=== PATIENT | male | born 1980 | race Hispanic/Latino ===

== ENCOUNTER 2020-08-06 09:27 | Inpatient (IN) | payer SELFPAY ==
[2020-08-06] MEDS ORDERED: Ondansetron PF 4 MG/2 ML Vial ONE ×2 (09:33→17:26)
[2020-08-06] MEDS ORDERED: Dexamethasone 20 MG/5 ML VIAL ONE (09:33)
[2020-08-06] MEDS ORDERED: Lidocaine 1% PF 5 ML VIAL ONE (09:33)
[2020-08-06] MEDS ORDERED: Rocuronium Bromide 10 MG/ML (10ML VIAL) ONE (09:33)
[2020-08-06] MEDS ORDERED: PROPOFOL 200 MG/20 ML VIAL ONE (09:33)
[2020-08-06] MEDS ORDERED: Haloperidol Lactate 5 MG/ML VIAL ONE (09:34)
[2020-08-06] MEDS ORDERED: Lorazepam 2 MG/ML VIAL ONE (09:37)
[2020-08-06] MEDS ORDERED: Ketamine 50 MG/ML (10ML VIAL) ONE (09:41)
[2020-08-06 10:14] LABS: #Lymphocytes 1.7 thou/uL (1.20-3.40); #Monocytes 0.4 thou/uL (0.11-0.59); #Neutrophils 5.6 thou/uL (1.40-6.50); %Basophils 0.6 % (0.0-1.0); %Eosinophils 0.1 % (0.0-10.0); %Lymphocytes 21.6 % (21.0-51.0); %Monocytes 5.1 % (0.0-10.0); %Neutrophils 72.6 % (42.0-75.0); Hemoglobin 15.6 g/dL (14.0-18.0); Mean Corpuscular HGB CONC 33.4 g/dL (32.0-36.0); Mean Corpuscular Hemoglobin 30.7 pg (27.0-31.0); Mean Platelet Volume 7.1 fL (7.4-10.4); Platelet Count 207 thou/uL (130-400); Red Blood Cell (RBC) Count 5.08 mill/uL (4.70-6.10); White Blood Cell (WBC) Count 7.7 thou/uL (4.8-10.8)
[2020-08-06] MEDS ORDERED: Boostrix 0.5 ML (Tdap) VIAL ONE (10:15)
[2020-08-06 10:19] LABS: PTT 25.2 sec (22.9-36.1)
[2020-08-06 10:33] LABS: ALT (SGPT) 43 U/L (8-55); AST (SGOT) 27 U/L (5-34); Acetaminophen Less than 6.0 mcg/mL (10.0-30.0); Albumin 4.5 g/dL (3.5-5.0); Alcohol Less than 10 mg/dL (Less than 10); Alkaline Phosphatase 67 U/L (40-110); Anion Gap 19 mmol/L (10-20); BUN (Urea Nitrogen) 15 mg/dL (8.9-20.6); Bilirubin, Total 0.7 mg/dL (0.2-1.2); CK (CPK) 460 U/L (30-200); Calc. Creatinine Clearance 0 mL/min (70-130); Calcium 8.8 mg/dL (7.8-10.44); Carbon Dioxide 22 mmol/L (22-29); Chloride 107 mmol/L (98-107); Globulin 2.8 g/dL (2.4-3.5); Glucose 170 mg/dL (70-105); Potassium 3.5 mmol/L (3.5-5.1); Protein, Total 7.3 g/dL (6.0-8.3); Salicylate Less than 8.0 mg/dL (15.0-30.0); Sodium 144 mmol/L (136-145)
--- NOTE | 2020-08-06 11:01 | RAD ---
EXAM: XR Wrist 3 Lt View STANDARD PROVIDED CLINICAL HISTORY: Pain FINDINGS: There is no evidence for fracture or other acute osseous abnormality. Alignment appears anatomic. Vandana nt spaces appear preserved. No evidence for radiopaque foreign body. Linear radiolucency involves the soft tissues at the volar aspect of the distal forearm. IMPRESSION: No evidence for an acute osseous abnormality. If there is persistent clinical concern, conservative m anagement and follow-up imaging advised.
--- NOTE | 2020-08-06 11:01 | RAD ---
EXAM: XR Wrist 3 Rt View STANDARD PROVIDED CLINICAL HISTORY: Pain FINDINGS: There is no evidence for fracture or other acute osseous abnormality. Alignment appears anatomic. Vandana nt spaces appear preserved. Soft tissue irregularity is noted at the volar aspect of the distal radius and ulna. No evidence for radiopaque foreign body. IMPRESSION: No evidence for an acute osseous abnormality. If there is persistent clinical concern, conservative m anagement and follow-up imaging advised.
[2020-08-06] MEDS ORDERED: Fentanyl 100 MCG/2 ML VIAL ONE ×3 (11:06→22:45)
[2020-08-06] MEDS ORDERED: Ondansetron PF 4 MG/2 ML Vial IVP PRN (11:27)
[2020-08-06] MEDS ORDERED: Dextrose 50% Abboject 50 ML SYRINGE SLOW IVP PRN (11:27)
[2020-08-06] MEDS ORDERED: Dextrose 5% in Water 1,000 ML IV PRN (11:27)
[2020-08-06] MEDS ORDERED: traMADol HCl 50 MG TAB PO PRN (11:29)
--- NOTE | 2020-08-06 12:48 | HP ---
TRAUMA SURGEON: Fabián Hutchison MD. CONSULTING PHYSICIAN: Dr. Mcclellan. HISTORY OF PRESENT ILLNESS: The patient is a 40-year-old male, presented to the emergency department via EMS after bilateral self-inflicted wrist lacerations. Emergency room physician reported that the patient called his father and was acting unusually, so subsequently emergency services went to check on him and he had bilateral wrist lacerations. On evaluation, right wrist was concerning for possible vascular injury. Compression dressing was placed and Trauma was notified. Dr. Mcclellan plans to take the patient to the OR. At the time of my evaluation, the patient is resting comfortably in the bed. He was reportedly uncooperative earlier, but during my evaluation, he refused to speak to me or open his eyes, I was not able to perform an examination, but his right upper extremity was splinted. He did not cooperate with any of my instructions, but was not combative or destructive. REVIEW OF SYSTEMS: Unable to complete due to patient's mentation. PAST MEDICAL HISTORY: Depression. Additional past medical history, unknown. PAST SURGICAL HISTORY: Unknown. SOCIAL HISTORY: Unknown. MEDICATIONS: Unknown. ALLERGIES: UNKNOWN. PHYSICAL EXAMINATION: VITAL SIGNS: Temperature 98.2, pulse 78, respirations 16, oxygen saturation 97% on room air, blood pressure 121/79. PRIMARY SURVEY: Airway intact. Adequate breath sounds bilaterally. 2+ pulses in bilateral radials, femorals, and DPs. GCS 15. Gross motor and sensation intact. The patient has very superficial lacerations to the left wrist, right laceration was unable to be examined as the splint was in place, but the tips of the fingers were well perfused. SECONDARY SURVEY: HEAD: No signs of trauma. No signs of deformity. EYES: Pupils 3 to 2. ENT: No signs of trauma. C-SPINE: No step-offs or deformities, nontender C-collar not in place. CHEST: Nontender. No crepitus, no abrasions or ecchymosis noted. Equal chest movement. ABDOMEN: Soft, nontender, nondistended. PELVIS: Stable. RECTAL: Deferred. GENITOURINARY: Deferred. EXTREMITIES: No gross deformity to the bilateral lower extremities. He has multiple superficial lacerations to the left wrist. It is reported that he has a right wrist laceration, but the splint is in place, the tips of his fingers of the right hand are well perfused. BACK/SPINE: No step-offs or deformities or tenderness to thoracic or lumbar spine. NEURO: Unable to complete due to patient's unwillingness to cooperate in exam. LABORATORY FINDINGS: White count 7.7, hemoglobin 15.6, hematocrit 46.7, platelets 207. INR 1.0. Sodium 144, potassium 3.5, chloride 107, bicarb 22, BUN 15, creatinine 1.28, glucose 170, total bilirubin 0.7, AST 27, ALT 43, alkaline phosphatase 64. CK 460, plasma alcohol is less than 10. X-RAY: Of the left wrist demonstrates no evidence of acute osseous abnormalities. If there is persistent clinical concern, conservative management and followup imaging advised. X-ray of the right wrist demonstrates no evidence of an acute osseous abnormality. If there is persistent clinical concern, conservative management and followup imaging is advised. ASSESSMENT: 1. Status post self-inflicted bilateral wrist lacerations. 2. Concern for possible right arterial wrist injury. 3. History of depression. 4. Concern for suicide attempt. PLAN: The patient will be admitted to the Trauma Service. Dr. Mcclellan has been consulted and plans to take the patient to the OR. We will provide p.r.n. and scheduled pain medications postop. He will work with Occupational Therapy. Once the patient is medically cleared by Trauma and Dr. Mcclellan, we will ask [facility] to evaluate the patient. We will also speak to the family for any additional information that may be useful to them. This patient was discussed with Dr. Hutchison before this dictation. Job ID: [id number]
[2020-08-06 13:31] LABS: SARS-CoV-2 NAA Rapid Test Not Detected (NotDetected)
[2020-08-06 16:11] LABS: Bacteria/HPF None Seen HPF (None Seen); Bilirubin Negative (Negative); Blood, Urine Negative (Negative); Clarity Turbid (Clear); Glucose, Urine (Dipstick) Normal (Negative); Ketone, Urine 100 mg/dL (Negative); Leukocyte 25 Leu/uL (Negative); Nitrite Negative (Negative); Protein, Urine (Dipstick) 70 mg/dL (Neg-Trace); RBC/HPF Greater than 50 HPF (0-3); Specific Gravity, Urine 1.036 (1.002-1.036); Squamous Epithelial 0-3 HPF (0-3); Urobilinogen Normal mg/dL (Less than 2)
[2020-08-06 16:13] LABS: Medtox Reader # READER 1
[2020-08-06 16:14] LABS: Amphetamine Not Detected (NotDetected); Barbiturates Screen Not Detected (NotDetected); Benzodiazepine Screen Detected (NotDetected); Cocaine Metabolite Screen Not Detected (NotDetected); Medtox Control Line Valid? VALID (VALID); Methadone Not Detected (NotDetected); Methamphetamine Not Detected (NotDetected); Opiate Screen Not Detected (NotDetected); Oxycodone Screen Not Detected (NotDetected); Phencyclidine (PCP) Not Detected (NotDetected); THC/Cannabinoid Screen Detected (NotDetected); Tricyclic Screen Not Detected (NotDetected)
[2020-08-06] MEDS ORDERED: Bupivacaine PF 0.5% 30 ML VIAL ONE (18:02)
[2020-08-06] MEDS ORDERED: Bacitracin Zinc Ointment 30 gm TUBE ONE (18:02)
[2020-08-06] MEDS ORDERED: Betamet Acet/Betamet Na Ph 30 MG/5 ML VIAL ONE (18:02)
[2020-08-06] MEDS ORDERED: Sodium Chloride 0.9% 30 ML ONE (19:09)
[2020-08-06] MEDS ORDERED: Hetastarch 6% 500 ML 500 ML ONE (19:33)
[2020-08-06] MEDS ORDERED: Lidocaine 2% PF 5 ML VIAL ONE (19:33)
[2020-08-06] MEDS ORDERED: Heparin 0 ML ONE (19:34)
[2020-08-06] MEDS ORDERED: Heparin 10,000 UNITS/1 ML VIAL 30,000 UNITS in Sodium Chloride 0.9% 1,000 ML FS SCH (19:45)
[2020-08-06] MEDS ORDERED: Heparin 10,000 UNITS/ 10 ML VIAL ONE ×2 (20:19→21:04)
[2020-08-06] MEDS ORDERED: Promethazine HCl 25 MG/ML VIAL SLOW IVP PRN (22:24)
[2020-08-06] MEDS ORDERED: Morphine Sulfate 2 MG/ML SYRINGE SLOW IVP PRN (22:24)
[2020-08-06] MEDS ORDERED: Promethazine HCl 25 MG/ML VIAL IM PRN (22:24)
[2020-08-06] MEDS ORDERED: Ondansetron HCl/PF 4 MG/2 ML Vial IVP PRN (22:24)
[2020-08-06] MEDS ORDERED: HYDROmorphone 2 MG/ML VIAL SLOW IVP PRN (22:24)
[2020-08-06] MEDS ORDERED: Meperidine HCl/PF 25 MG/ML VIAL IM PRN (22:53)
[2020-08-06] MEDS ORDERED: Morphine 4 MG/ML VIAL SLOW IVP SCH (23:15)
[2020-08-06] MEDS ORDERED: Heparin 25,000 units/D5W 500 ML IVPB SCH (23:45)
[2020-08-06] MEDS ORDERED: Hetastarch 6% 500 ML 500 ML IVPB SCH (23:45)
[2020-08-07] MEDS: Sodium Chloride 0.9% 1,000 ML IV SCH ×5 (00:07→21:16)
[2020-08-07] MEDS: Acetaminophen 500 MG TAB PO SCH ×6 (00:08→22:16)
[2020-08-07] MEDS: traMADol HCl 50 MG TAB PO PRN ×4 (00:45→21:14)
[2020-08-07] MEDS: Cyclobenzaprine 10 MG TAB PO PRN ×3 (00:45→22:16)
[2020-08-07] MEDS: Famotidine 20 MG TAB PO SCH ×3 (00:47→20:12)
[2020-08-07] MEDS: Senokot S 8.6-50 MG TAB PO SCH ×3 (00:48→20:12)
[2020-08-07 00:50] VITALS: BMI 29.7
--- NOTE | 2020-08-07 01:42 | PRG ---
DATE OF SERVICE: 08/06/2020 SUBJECTIVE: The patient was seen during evening rounds, just returning from the operating room. The patient went for repair of an arterial injury to the right wrist by Dr. Mcclellan. The patient is currently awake, alert, in no distress. The patient does report moderate amount of pain at this time. The patient's right upper extremity is splinted and clean, dry, and intact. A sitter is at bedside, as it was reported patient had self-inflicted lacerations to bilateral wrists. OBJECTIVE: VITAL SIGNS: Stable. He is afebrile. PLAN: Continue supportive care and pain regimen. PT and OT to evaluate and treat. Sitter at bedside at all times. Regular diet as tolerated. We will continue maintenance IV fluids overnight until we ensure patient is tolerating a diet. Job ID: [id number]
[2020-08-07] MEDS: Vancomycin 1 GM in Premix Bag 1 BAG IVPB SCH ×2 (05:53→17:51)
[2020-08-07 06:03] LABS: #Basophils 0.1 thou/uL (0.0-0.2); #Lymphocytes 1.5 thou/uL (1.20-3.40); #Monocytes 0.7 thou/uL (0.11-0.59); #Neutrophils 9.1 thou/uL (1.40-6.50); %Basophils 0.5 % (0.0-1.0); %Eosinophils 0.1 % (0.0-10.0); %Lymphocytes 13.5 % (21.0-51.0); %Monocytes 5.8 % (0.0-10.0); %Neutrophils 80.1 % (42.0-75.0); Hemoglobin 12.2 g/dL (14.0-18.0); Mean Corpuscular HGB CONC 33.6 g/dL (32.0-36.0); Mean Corpuscular Hemoglobin 30.9 pg (27.0-31.0); Mean Corpuscular Volume 92.2 fL (78.0-98.0); Mean Platelet Volume 6.9 fL (7.4-10.4); Platelet Count 199 thou/uL (130-400); RBC Distribution Width 12.1 % (11.5-14.5); Red Blood Cell (RBC) Count 3.96 mill/uL (4.70-6.10); White Blood Cell (WBC) Count 11.4 thou/uL (4.8-10.8)
[2020-08-07 06:27] LABS: Anion Gap 12 mmol/L (10-20); BUN (Urea Nitrogen) 15 mg/dL (8.9-20.6); Calc. Creatinine Clearance 144 mL/min (70-130); Calcium 7.3 mg/dL (7.8-10.44); Carbon Dioxide 23 mmol/L (22-29); Chloride 109 mmol/L (98-107); Glucose 129 mg/dL (70-105); Magnesium 1.8 mg/dL (1.6-2.6); Phosphorus 2.7 mg/dL (2.3-4.7); Potassium 4.2 mmol/L (3.5-5.1); Sodium 140 mmol/L (136-145)
--- NOTE | 2020-08-07 07:33 | OP ---
DATE OF PROCEDURE: 08/06/2020 PREOPERATIVE DIAGNOSES: 1. Right wrist wound with multiple tendon lacerations. 2. Ulnar artery laceration . POSTOPERATIVE DIAGNOSES: 1. Right wrist wound with tendon laceration in the following sites;. a. Extensor carpi ulnaris tendon, incomplete. b. Complete flexor carpi ulnaris laceration. c. Complete flexor digitorum superficialis ring finger. d. Complete palmaris longus laceration. Intact structures included the median nerve and ulnar nerve. Also, complete ulnar nerve laceration with segmental cuts here as well as the flexor to the ring finger showing he also had multiple lacerations, scratches on his left contralateral wrist and the 6 cm wound was on the right wrist. PROCEDURES PERFORMED: 1. Debridement of wound, depth down to but not including bone, [id number]. 2. Closure of wound, 6 cm, multiple layers. 3. Palmaris longus repair. 4. Extensor carpi ulnaris partial repair. 5. Flexor carpi ulnaris repair. 6. Repair, flexor digitorum superficialis to the ring finger. 7. Median nerve neuroplasty. 8. Ulnar nerve neuroplasty wrist. 9. Microscopic ulnar artery repair. 10. Long-arm splint application. ESTIMATED BLOOD LOSS: 150 mL. TOURNIQUET TIME: 72 minutes. INDICATIONS: The patient has attempted suicide today as verified by history, exam on the contralateral side and the fact that there were double lacerations on the skin at the right palmar wrist, the ulnar artery, and the tendon lacerations. DESCRIPTION OF PROCEDURE: After successful general LMA technique by the staff anesthesia, the limb was prepped and draped. We gave the patient a total of 30 mL of 0.5% Marcaine in ilda-incisional block technique, exsanguinated the limb to 250 mmHg pressure despite some bleeding and then elevated the tourniquet to 250 mmHg. We extended his transverse laceration 3.5 cm distal and 6 cm proximal until we could see all neurovascular structures. We immediately performed a neuroplasty of the median and ulnar nerve under magnification and found that they are both intact throughout the entire area that could possibly damage, especially in the transverse limb. We then debrided with tenotomy scissors, Adson's, and [place] blade, all bursa that was inflamed , nonviable including a small amount of dirt particles, but contamination was mild. Once we did this, finished debridement down to the depth, but not including the bone. We then finished our median nerve neuroplasty, ulnar neuroplasty magnification. We then proceeded to repair of the palmaris longus, extensor carpi ulnaris, flexor carpi ulnaris and the flexor digitorum superficialis tendon with a 3-0 loop suture using the technique of limb inside for six strand repair with excellent primary cord suture and a running paratenon around each site. The flexor carpi radialis would not be closed until the ulnar nerve and artery were addressed. We then finished the median nerve neuroplasty, found all the deep tendons to this be intact and then we saw the segmental cut injury on the flexor to the superficialis of the ring finger. We repaired this. This was in continuity. About 60% of depth with interrupted 4-0 Prolene [id number] on both the sides. They were cut just short enough to maintain a knot. We now completed the primary inside work, identified the repair of palmaris longus being excellent as well as the other repairs and we turned our attention to the microscope. The microscope was brought onto the field, we completed the neuroplasty, confirmed them under microscope for both the median and ulnar nerves. No involvement was seen. Then, we deflated the tourniquet. We then brought the microscope on the field, visualized the segmental laceration on the proximal end, removed it and we still could coapt the ends of the laceration. At this time, we prepared the vessel using a combination of [place] blade and abnormality. Then, we brought the microscope on the field, after resecting the artery under microscope in the segmental portion, we lost approximately 2 mm of length, which was made up by dissecting the artery more free. We then finished preparing repair. Once we had done this, we used Andre solution to eliminate clot from the distal 1 cm of both sides of vessel laceration. The ulnar nerve was intact as said. The ulna artery was then able to the cleaned, released the tourniquet and there was excellent flow from both proximal distal and distal proximal to the laceration underneath the two ends of the artery and then we were already in the clamp for cleaning and then removed the clamp and we saw the flow was intact and pulsatile. Immediately put the clamp back on, cleaned the vessel, and then used an interrupted simple 8-0 nylon stitch to repair the arterial bleeder. Once this was done, we then finished the repair of the flexor carpi ulnaris with excellent tension with the wrist flexed 35 degrees. The patient then had the heparin bolused and then appropriate drip wounds were closed, and the patient left the operating room without evidence of anesthetic or operative complications. Job ID: [id number]
[2020-08-07] MEDS: Polyethylene Glycol 3350 17 GM Packet PO SCH (10:12)
[2020-08-07] MEDS: hydrALAZINE 20 MG/ML VIAL SLOW IVP PRN (11:27)
--- NOTE | 2020-08-07 15:52 | PRG ---
DATE OF SERVICE: 08/07/2020 The patient was seen by Dr. Dashawn Winters. SUBJECTIVE: Mr. Nixon is a 40-year-old male, postop day #1, status post operative repair of complex laceration of the right wrist including tendon lacerations and ulnar artery laceration. The patient is doing well in his splint. Has good sensation. He is on a heparin drip. No acute distress. He is ambulating in the halls, tolerating a diet. OBJECTIVE: VITAL SIGNS: Temperature is 98.3, blood pressure 135/73, heart rate is 73, respiratory rate is 16, saturating 93% on room air. GENERAL: This is a 40-year-old male, sitting up, in no acute distress. HEENT: Normocephalic. RESPIRATORY: Equal rise and fall. No distress. CARDIOVASCULAR: Strong pulses. He has sensation distally to his surgery site. PSYCHIATRIC: Normal mood and affect. NEUROLOGIC: GCS is 15. He is ambulatory. MUSCULOSKELETAL: He has a brace noted to the right upper extremity. LABORATORY DATA: From today, white blood cell count 11.4, platelets are 199, hemoglobin and hematocrit of 12.2 and 36.5 respectively. Sodium is 140, potassium 4.2, chloride is 109, CO2 is 23, BUN is 15, creatinine 0.97, calcium is 7.3, glucose 129, magnesium is 1.8, and phosphorus 2.7. ASSESSMENT: 1. Bilateral wrist lacerations. 2. Right ulnar artery as well as multiple tendon lacerations, status post repair by Dr. Mcclellan. 3. Self-harm/suicide attempt. 4. History of depression. PLAN: 1. Continue all other supportive care. 2. Continue heparin per Hand Surgery. 3. Follow Dr. Mcclellan's recommendations. 4. Pain control as needed. 5. We will need [facility] consult. 6. We will try to reconcile the patient's home medications and start any antidepressants he is on as outpatient. Job ID: [id number]
[2020-08-08] MEDS: Vancomycin 1 GM in Premix Bag 1 BAG IVPB SCH ×2 (05:22→17:57)
[2020-08-08] MEDS: Acetaminophen 500 MG TAB PO SCH ×3 (05:24→17:45)
[2020-08-08] MEDS: traMADol HCl 50 MG TAB PO PRN (05:25)
[2020-08-08] MEDS: Sodium Chloride 0.9% 1,000 ML IV SCH ×3 (09:09→13:12)
[2020-08-08] MEDS: Senokot S 8.6-50 MG TAB PO SCH ×2 (09:10→23:28)
[2020-08-08] MEDS: Famotidine 20 MG TAB PO SCH (09:10)
[2020-08-08] MEDS: Polyethylene Glycol 3350 17 GM Packet PO SCH (09:10)
[2020-08-08 19:11] LABS: Vancomycin, Trough 3.2 ug/mL
--- NOTE | 2020-08-08 19:57 | PRG ---
DATE OF SERVICE: 08/08/2020 SUBJECTIVE: The patient is currently on the surgical floor. He is postop day 2, status post repair of a complex laceration to his right wrist. The patient is doing well. Dr. Mcclellan still has him on a heparin drip. The patient reports that his pain is controlled. He does have occasional burning sensation, but otherwise is doing well. He is tolerating a diet and he is working with Physical and Occupational Therapy. OBJECTIVE: VITAL SIGNS: Temperature is 98.1, heart rate 61, blood pressure 136/75, respirations 16, and oxygen saturation 95% on room air. GENERAL: The patient is resting comfortably in bed. He is awake, alert, conversant, appropriate. His Renick Coma Scale is 15. HEENT: Unremarkable. RESPIRATIONS: Chest is equal rise and fall, clear bilaterally. HEART: Regular rate and rhythm. ABDOMEN: Soft with active bowel sounds. EXTREMITIES: Neurovascularly intact x4. His right upper extremity is immobilized in a dorsal splint. His digits are neurovascularly intact. DIAGNOSTIC DATA: There are no labs or radiographs to review this morning. ASSESSMENT: 1. Status post suicide attempt. 2. Bilateral wrist lacerations. 3. Status post repair of right ulnar artery and multiple tendons. 4. History of depression. PLAN: Will be to continue supportive care. Encourage physical and occupational therapy. Heparin drip per Dr. Mcclellan and once the patient is cleared medically, we will consult [facility]. The patient was seen this morning with Dr. Winters during rounds. Job ID: [id number]
[2020-08-08] MEDS: Cyclobenzaprine 10 MG TAB PO PRN (22:18)
[2020-08-09] MEDS: Vancomycin 1.5 GRAM/300 ML BAG 1.5 GM in Premix Bag 1 BAG IVPB SCH ×2 (00:15→10:14)
[2020-08-09] MEDS: Acetaminophen 500 MG TAB PO SCH ×4 (00:16→17:48)
[2020-08-09] MEDS ORDERED: Hetastarch 6% 500 ML 500 ML IVPB SCH ×2 (00:30→11:00)
[2020-08-09 06:13] LABS: PTT 31.7 sec (22.9-36.1); Prothrombin Time 13.6 sec (12.0-14.7)
[2020-08-09 06:43] LABS: Hemoglobin 11.8 g/dL (14.0-18.0); Mean Corpuscular Hemoglobin 31.4 pg (27.0-31.0); Mean Corpuscular Volume 92.4 fL (78.0-98.0); Platelet Count 186 thou/uL (130-400); RBC Distribution Width 11.9 % (11.5-14.5); Red Blood Cell (RBC) Count 3.75 mill/uL (4.70-6.10); White Blood Cell (WBC) Count 7.1 thou/uL (4.8-10.8)
[2020-08-09 08:25] LABS: Eosinophils 4 % (0-10); Lymphocytes 66 % (21-51); MDiff Complete? YES; Monocytes 5 % (0-10); Neutrophil 25 % (42-75)
[2020-08-09] MEDS: Senokot S 8.6-50 MG TAB PO SCH ×2 (10:14→20:32)
[2020-08-09] MEDS: Polyethylene Glycol 3350 17 GM Packet PO SCH (10:15)
[2020-08-09] MEDS: Aspirin 325 mg Enteric Coated Tablet PO SCH (10:15)
[2020-08-09] MEDS ORDERED: traMADol HCl 50 MG TAB PO PRN (10:59)
[2020-08-09] MEDS: Sodium Chloride 0.9% 1,000 ML IV SCH (12:17)
[2020-08-09] MEDS: Ketorolac Tromethamine 10 MG TAB PO SCH ×2 (15:33→20:30)
--- NOTE | 2020-08-09 17:00 | PRG ---
DATE OF SERVICE: 08/09/2020 SUBJECTIVE: The patient was seen on the surgical floor during morning rounds with Dr. Winters. He is postop day #3, status post repair of complex laceration to his right wrist. Dr. Mcclellan is currently at bedside replacing his dressing. He states that he will discontinue his heparin drip today. The patient has a sitter at all times due to suicidal ideations. The patient is tolerating a regular diet and his pain has been controlled. The patient is working with Physical and Occupational Therapy. OBJECTIVE: VITAL SIGNS: Temperature 98.6, pulse 60, respirations 18, SpO2 99% on room air, blood pressure 144/80. GENERAL: Well-appearing middle-aged male, awake, alert, in no distress, GCS 15. HEENT: Unremarkable. RESPIRATIONS: Good inspiratory and expiratory effort, respirations are nonlabored. CARDIAC: Regular rate, regular rhythm. EXTREMITIES: Neurovascularly intact x4, right upper extremity immobilized. LABORATORY DATA: WBC 7.1, RBC 3.75, hemoglobin 11.8, hematocrit 34.7, platelets 186. PT 13.6, INR 1.0, hemoglobin 31.7. ASSESSMENT: 1. Status post suicide attempt. 2. Bilateral wrist lacerations. 3. Status post repair of right ulnar artery and multiple tendons. 4. History of depression. PLAN: Continue supportive care and pain regimen. Encourage physical and occupational therapy. Most likely patient can be medically cleared tomorrow after all of his IV medications and can consult [facility] for placement. The patient was seen by Dr. Winters during morning rounds. Job ID: [id number] MTDD
[2020-08-10] MEDS: hydrALAZINE 20 MG/ML VIAL SLOW IVP PRN ×2 (00:27→20:48)
[2020-08-10] MEDS: Acetaminophen 500 MG TAB PO SCH ×4 (00:45→19:23)
[2020-08-10] MEDS: Saccharomyces boulardii 250 MG CAP PO SCH (09:33)
[2020-08-10] MEDS: Aspirin 325 mg Enteric Coated Tablet PO SCH (09:33)
[2020-08-10] MEDS: Polyethylene Glycol 3350 17 GM Packet PO SCH (09:35)
[2020-08-10] MEDS: Senokot S 8.6-50 MG TAB PO SCH ×2 (09:35→19:58)
[2020-08-10] MEDS: Ketorolac Tromethamine 10 MG TAB PO SCH (09:35)
--- NOTE | 2020-08-10 16:33 | PRG ---
DATE OF SERVICE: 08/10/2020 SUBJECTIVE: The patient was seen this morning during rounds. He was sitting up in bed, awake, and alert with no signs of acute distress. Reports that Dr. Mcclellan recently changed his right upper extremity dressing. States that he is tolerating his diet, ambulates well in the hallways, is cooperative. Reports that he has been feeling more anxious recently and distrusting of people. States that he has always had this anxiety and distress, but it has gotten much worse now. He has no history of psychosis or paranoia. However, with bilateral wrist lacerations, there is concern for the patient's safety. The patient continues to deny to [facility] that these were self-inflicted wounds in a suicide attempt. However, his story does not add up to his injury pattern. OBJECTIVE: VITAL SIGNS: Temperature 98.7, pulse 51, respirations 16, oxygen saturation 95% on room air, blood pressure 165/90. GENERAL: Well-appearing young male, sitting up in bed with no signs of acute distress. PULMONARY: Equal chest rise and fall. No signs of acute respiratory distress. CARDIAC: Regular rate and rhythm. GI: Abdomen is soft, nontender, nondistended. EXTREMITIES: 2+ pulses in all extremities. Gross motor and sensation are intact. Splint to right upper extremity is clean, dry, and intact. NEUROLOGIC: GCS is 15. LABORATORY FINDINGS: There are no new laboratory findings to discuss. DIAGNOSTIC FINDINGS: There are no new diagnostic findings to discuss. ASSESSMENT: 1. Status post bilateral wrist lacerations. 2. Multiple right-sided tendon injury, status post repair. No sign of arterial injury. 3. History of depression and anxiety. PLAN: Continue current diet and pain regimen. Continue physical and occupational therapy. Continue supportive care. [facility] evaluated the patient and are recommending inpatient psychiatric management. The patient reports that he will voluntarily go to family members including his father and another family member have agreed to take him. [facility] reports that they do not believe that [employer] officers will take him if the patient is voluntary. In the meantime, we have asked [facility] to find placement for him. We will otherwise continue to provide supportive care until they have a location for him to go. There is concern that because he has a dressing to his right upper extremity that this maybe a hindrance for acceptance. We did ask [facility] to discuss with psychiatric hospital what type of dressing would they be willing to manage. We will follow up on their recommendations. Job ID: [id number]
[2020-08-10 17:30] LABS: #Basophils 0.1 thou/uL (0.0-0.2); #Eosinphils 0.1 thou/uL (0.0-0.7); #Lymphocytes 3.7 thou/uL (1.20-3.40); #Monocytes 0.8 thou/uL (0.11-0.59); #Neutrophils 4.6 thou/uL (1.40-6.50); %Basophils 1.5 % (0.0-1.0); %Eosinophils 1.5 % (0.0-10.0); %Lymphocytes 39.5 % (21.0-51.0); %Monocytes 8.2 % (0.0-10.0); %Neutrophils 49.3 % (42.0-75.0); Hemoglobin 13.4 g/dL (14.0-18.0); Mean Corpuscular HGB CONC 33.3 g/dL (32.0-36.0); Mean Corpuscular Hemoglobin 30.6 pg (27.0-31.0); Mean Corpuscular Volume 91.7 fL (78.0-98.0); Mean Platelet Volume 7.1 fL (7.4-10.4); Platelet Count 266 thou/uL (130-400); Red Blood Cell (RBC) Count 4.37 mill/uL (4.70-6.10); White Blood Cell (WBC) Count 9.4 thou/uL (4.8-10.8)
[2020-08-10 17:34] LABS: PTT 30.9 sec (22.9-36.1); Prothrombin Time 13.3 sec (12.0-14.7)
[2020-08-10 17:55] LABS: ALT (SGPT) 68 U/L (8-55); AST (SGOT) 43 U/L (5-34); Albumin 4.2 g/dL (3.5-5.0); Alkaline Phosphatase 66 U/L (40-110); Anion Gap 16 mmol/L (10-20); BUN (Urea Nitrogen) 15 mg/dL (8.9-20.6); Bilirubin, Total 0.4 mg/dL (0.2-1.2); CK (CPK) 113 U/L (30-200); Calc. Creatinine Clearance 147 mL/min (70-130); Calcium 8.8 mg/dL (7.8-10.44); Carbon Dioxide 23 mmol/L (22-29); Chloride 107 mmol/L (98-107); Globulin 2.7 g/dL (2.4-3.5); Glucose 115 mg/dL (70-105); Potassium 3.7 mmol/L (3.5-5.1); Protein, Total 6.9 g/dL (6.0-8.3); Sodium 142 mmol/L (136-145)
[2020-08-11] MEDS: Acetaminophen 325 MG TAB PO SCH ×2 (03:22→19:22)
[2020-08-11] MEDS ORDERED: Haloperidol Lactate 5 MG/ML VIAL ONE (08:59)
[2020-08-11] MEDS ORDERED: diphenhydrAMINE 50 MG/ML VIAL ONE (09:01)
[2020-08-11] MEDS ORDERED: Lorazepam 2 MG/ML VIAL ONE (09:01)
[2020-08-11] MEDS ORDERED: Ziprasidone 20 MG VIAL ONE (09:09)
[2020-08-11] MEDS ORDERED: Lorazepam 2 MG/ML VIAL IM SCH (10:00)
[2020-08-11] MEDS ORDERED: diphenhydrAMINE 50 MG/ML VIAL IM SCH (10:00)
[2020-08-11] MEDS ORDERED: Ziprasidone 20 MG VIAL IM SCH (10:00)
[2020-08-11] MEDS: carBAMazepine 200 MG TAB PO SCH ×2 (12:41→16:28)
--- NOTE | 2020-08-11 16:08 | PRG ---
DATE OF SERVICE: 08/11/2020 SUBJECTIVE: The patient remains on the surgical floor, he is status post self-inflicted bilateral wrist lacerations, who underwent tendon repair by Dr. Mcclellan. The patient also sustained a right ulnar artery injury that required repair. The patient reportedly has become more paranoid overnight, this morning as he was accepted for placement, it was noted by the [facility] deputies that the paperwork was incorrect and will require the appropriate corrections prior to them taking the patient. The corrections were made by [facility] showing that the patient is actually involuntary admission. Before the deputies returned the patient had become extremely excited and required a Code [place] to be called. The patient has to be restrained by multiple personnel to include security, [place] police department officer, and the [facility] deputies. Chemical sedation was administered and the patient would eventually become calm. Over the next several hours, the patient was able to be released from his restraints and appeared to be much more rational. We will continue to attempt placement for this patient. The patient's repair appeared to be intact. It was re-dressed and padded for protection. PHYSICAL EXAMINATION: VITAL SIGNS: Temperature 98.5, heart rate 62, blood pressure 143/89, respirations 16, and oxygen saturation is 98% on room air. GENERAL: At this time, the patient is resting comfortably in bed. He is asleep, but does open his eyes to gentle verbal stimuli. He does not appear to be agitated at this time. HEENT: Unremarkable. RESPIRATIONS: Nonlabored. ABDOMEN: Nondistended. EXTREMITIES: Neurovascularly intact. The right upper extremity dressing is clean, dry, and intact. The patient does appear to have movement of all of his digits. DIAGNOSTIC STUDIES: There are no labs or radiographs reviewed this morning. ASSESSMENT AND PLAN: 1. Status post bilateral wrist lacerations, self-inflicted. 2. Status post repair of right ulnar artery and multiple right flexor tendons. 3. History of depression and anxiety with acute psychosis. Plan will be to continue current regimen. We have added Tegretol 300 mg t.i.d. in addition to p.r.n. Haldol. We will continue working with [facility] and family to get the patient placed at his inpatient psychiatric facility. Job ID: [id number] [facility]
[2020-08-11] MEDS: Aspirin 325 mg Enteric Coated Tablet PO SCH (19:23)
[2020-08-11] MEDS: Polyethylene Glycol 3350 17 GM Packet PO SCH (19:23)
[2020-08-11] MEDS: Saccharomyces boulardii 250 MG CAP PO SCH (19:23)
[2020-08-11] MEDS: Senokot S 8.6-50 MG TAB PO SCH ×2 (19:24→22:28)
[2020-08-11] MEDS: Haloperidol 1 MG TAB PO SCH (22:28)
[2020-08-12] MEDS: Acetaminophen 325 MG TAB PO SCH ×5 (04:51→23:43)
[2020-08-12] MEDS: Saccharomyces boulardii 250 MG CAP PO SCH (08:38)
[2020-08-12] MEDS: Polyethylene Glycol 3350 17 GM Packet PO SCH (08:38)
[2020-08-12] MEDS: Senokot S 8.6-50 MG TAB PO SCH ×2 (08:38→20:29)
[2020-08-12] MEDS: Aspirin 325 mg Enteric Coated Tablet PO SCH (08:38)
[2020-08-12] MEDS: carBAMazepine 200 MG TAB PO SCH ×4 (08:39→17:48)
--- NOTE | 2020-08-12 13:57 | PRG ---
DATE OF SERVICE: 08/12/2020 SUBJECTIVE: The patient remains on the surgical floor. He is status post self-inflicted lacerations to his bilateral wrist, right being greater than the left. He has undergone operative repair of an ulnar artery laceration and multiple flexor tendons on that side. Yesterday, the patient had a significant mental health breakdown, requiring chemical sedation and physical restraints. Overnight, the patient had no issues. This morning, he is in markedly better spirits, he is cooperative and is apologetic for his action yesterday, though he does not remember them. The patient is tolerating a diet. His pain is controlled. The patient still has some anxiety regarding going to inpatient psychiatric facility, but is agreeing to be cooperative. PHYSICAL EXAMINATION: VITAL SIGNS: Temperature is 98.6, heart rate 78, blood pressure 166/97, respirations 14, oxygen saturation 99% on room air. GENERAL: The patient is out of bed, doing personal hygiene. He is awake, alert, conversant. Jani Coma Scale is 15. HEENT: Unremarkable. LUNGS: Respirations are nonlabored. ABDOMEN: Nondistended. EXTREMITIES: Neurovascularly intact x4. His right upper extremity specifically has full function, flexion, extension of his digits. He is neurovascularly intact. His dressing is clean, dry, and intact. LABORATORY DATA: There are no labs or radiographs to review this morning. ASSESSMENT AND PLAN: 1. Status post bilateral wrist lacerations, self-inflicted. 2. Status post repair of right ulnar artery and multiple flexor tendons. 3. History of depression and anxiety with acute psychosis, improved. Plan will be to continue current regimen. Discussed with the patient at length regarding his medications. He agrees to continue with his Tegretol and pain medicine when needed. The inpatient psych facility will contact us tomorrow regarding bed availability. Job ID: [id number]
[2020-08-12] MEDS ORDERED: Amlodipine 5 MG TAB PO SCH (17:15)
[2020-08-12] MEDS: Haloperidol 1 MG TAB PO SCH (20:28)
[2020-08-12] MEDS: Haloperidol Lactate 5 MG/ML VIAL IM PRN (23:40)
[2020-08-13] MEDS: Acetaminophen 325 MG TAB PO SCH ×3 (05:34→17:44)
[2020-08-13] MEDS: Haloperidol Lactate 5 MG/ML VIAL IM PRN (07:20)
[2020-08-13] MEDS: Cyclobenzaprine 10 MG TAB PO PRN ×2 (07:20→21:40)
[2020-08-13] MEDS: carBAMazepine 200 MG TAB PO SCH ×3 (08:28→17:46)
[2020-08-13] MEDS: Aspirin 325 mg Enteric Coated Tablet PO SCH (08:29)
[2020-08-13] MEDS: Saccharomyces boulardii 250 MG CAP PO SCH (08:29)
[2020-08-13] MEDS: Senokot S 8.6-50 MG TAB PO SCH ×2 (08:29→20:23)
[2020-08-13] MEDS: Amlodipine 5 MG TAB PO SCH (08:29)
[2020-08-13] MEDS: Polyethylene Glycol 3350 17 GM Packet PO SCH (08:29)
--- NOTE | 2020-08-13 15:16 | EKG ---
Test Reason : Blood Pressure : / mmHG Vent. Rate : 061 BPM Atrial Rate : 061 BPM P-R Int : 152 ms QRS Dur : 104 ms QT Int : 438 ms P-R-T Axes : 031 004 028 degrees QTc Int : 440 ms Normal sinus rhythm Abnormal ECG No previous ECGs available Confirmed by NATALIA HUGHES, DR. Pineda ([id number]) on 08/13/2020 3:15:59 PM Referred By: Confirmed By:DR. Edwin FISHER MD
[2020-08-13] MEDS: Haloperidol 1 MG TAB PO SCH (20:23)
--- NOTE | 2020-08-13 20:51 | PRG ---
DATE OF SERVICE: 08/13/2020 SUBJECTIVE: The patient remains on the surgical floor. He is status post self-inflicted lacerations to his bilateral wrists, the right required repair of ulnar artery and flexor tendons. He has had no issues overnight. He is cooperative with his medications. He is ambulating multiple times. He is tolerating a diet. His pain is controlled. He is currently scheduled to go to inpatient psychiatric facility tomorrow. PHYSICAL EXAMINATION: VITAL SIGNS: Temperature is 98.9, heart rate 79, blood pressure 162/83, respirations 16, and oxygen saturation 98% on room air. GENERAL: The patient is resting comfortably in bed. He has just returned from walking in the hallway with his sitter. He is awake, alert, conversant, appropriate. [place] Coma Scale is 15. HEENT: Unremarkable. RESPIRATIONS: Nonlabored. ABDOMEN: Nondistended. EXTREMITIES: Neurovascularly intact x4. Right upper extremity has a clean, dry, and intact dressing. LABORATORY DATA: There are no labs or radiographs reviewed this morning. ASSESSMENT AND PLAN: 1. Status post self-inflicted lacerations of bilateral wrist. 2. Status post repair of right ulnar artery and multiple flexor tendons, stable. 3. History of depression and anxiety with acute psychosis, improved. PLAN: Will be to continue encouraging out of bed, medications as discussed and we will do updated labs for inpatient psych facility. The patient was evaluated this morning with Dr. Winters during rounds. Job ID: [id number]
[2020-08-13 21:00] LABS: #Basophils 0.1 thou/uL (0.0-0.2); #Eosinphils 0.2 thou/uL (0.0-0.7); #Lymphocytes 4.2 thou/uL (1.20-3.40); #Monocytes 0.9 thou/uL (0.11-0.59); #Neutrophils 4.9 thou/uL (1.40-6.50); %Basophils 1.3 % (0.0-1.0); %Eosinophils 1.7 % (0.0-10.0); %Lymphocytes 40.6 % (21.0-51.0); %Monocytes 8.4 % (0.0-10.0); %Neutrophils 48.1 % (42.0-75.0); Hemoglobin 13.1 g/dL (14.0-18.0); Mean Corpuscular HGB CONC 33.2 g/dL (32.0-36.0); Mean Corpuscular Hemoglobin 30.9 pg (27.0-31.0); Mean Platelet Volume 6.8 fL (7.4-10.4); Platelet Count 282 thou/uL (130-400); RBC Distribution Width 12.5 % (11.5-14.5); Red Blood Cell (RBC) Count 4.25 mill/uL (4.70-6.10); White Blood Cell (WBC) Count 10.2 thou/uL (4.8-10.8)
[2020-08-13 21:23] LABS: ALT (SGPT) 51 U/L (8-55); AST (SGOT) 37 U/L (5-34); Albumin 4.1 g/dL (3.5-5.0); Alkaline Phosphatase 87 U/L (40-110); Anion Gap 13 mmol/L (10-20); BUN (Urea Nitrogen) 16 mg/dL (8.9-20.6); Bilirubin, Total 0.3 mg/dL (0.2-1.2); Calc. Creatinine Clearance 148 mL/min (70-130); Calcium 8.3 mg/dL (7.8-10.44); Carbon Dioxide 27 mmol/L (22-29); Chloride 104 mmol/L (98-107); Globulin 2.6 g/dL (2.4-3.5); Glucose 125 mg/dL (70-105); Magnesium 2.2 mg/dL (1.6-2.6); Phosphorus 3.3 mg/dL (2.3-4.7); Potassium 4.2 mmol/L (3.5-5.1); Protein, Total 6.7 g/dL (6.0-8.3); Sodium 140 mmol/L (136-145)
[2020-08-13] MEDS ORDERED: Amlodipine 5 MG TAB PO SCH (21:30)
[2020-08-14] MEDS: Acetaminophen 325 MG TAB PO SCH ×3 (00:45→11:52)
[2020-08-14] MEDS: Saccharomyces boulardii 250 MG CAP PO SCH (08:57)
[2020-08-14] MEDS: Aspirin 325 mg Enteric Coated Tablet PO SCH (08:57)
[2020-08-14] MEDS: Amlodipine 5 MG TAB PO SCH (08:57)
[2020-08-14] MEDS: carBAMazepine 200 MG TAB PO SCH ×3 (08:57→17:51)
[2020-08-14] MEDS ORDERED: Amlodipine 10 MG TAB PO SCH (09:00)
[2020-08-14] MEDS: Polyethylene Glycol 3350 17 GM Packet PO SCH (11:42)
[2020-08-14] MEDS: Senokot S 8.6-50 MG TAB PO SCH (11:42)
[2020-08-14] MEDS ORDERED: Lorazepam 1 MG TAB PO SCH (14:00)
[2020-08-14 15:04] VITALS: BP 144/82; TEMP 98.5
--- NOTE | 2020-08-15 06:16 | PQF ---
CLINICAL DOCUMENTATION CLARIFICATION FORM: Dear : Michael Mcclellan Date / Time: 08/15/2020614 Please exercise your independent, professional judgment in responding to the clarification form. Clinical indicators are provided on the bottom of this form for your review Based on your clinical judgment, can you please specify the type and depth of patients debridement? Please check appropriate box(es): [ ] Excisional Debridement: Depth / layer: (deepest layer of debridement): [ ] Skin [ ] Subcutaneous [ ] Fascia [ ] Muscle [ ] Tendon [ ] Bone [ ] Non-excisional Debridement: (Removal by ?ushing, brushing, chemical, or washing) Depth / layer: (deepest layer of debridement): [ ] Skin [ ] Subcutaneous [ ] Fascia [ ] Muscle [ ] Tendon [ ] Bone [ ] Other procedure,please specify [ ] Unable to determine Physician Signature: Date/Time: For continuity of documentation, please document condition throughout progress notes and discharge summary. Thank You. To be completed by CDI/Coding staff for physician review: Present Clinical Indicators - Signs / Symptoms / Labs Results and Location in Medical Record [x] We then debrided with tenotomy scissors, adsons and [employer] blade, all bursa that was inflamed, nonviable including a small amount of dirt particles, but contamination was mild Operative report 08/06 Dr Mcclellan [x] Finished debridement down to the depth but not including the bone Operative report 08/06 Dr Mcclellan Present Risk Factors Results and Location in Medical Record [x] Right wrist wound with multiple tendon lacerations Operative report 08/06 Dr Mcclellan [x] Ulnar Artery Laceration Operative report 08/06 Dr Mcclellan Present Treatments Results and Location in Medical Record [x] Debridement of wound Operative report 08/06 Dr Mcclellan [x] Hand Trauma Consult Consult 08/06 [x] IVF MAR 08/06 CDS/Rn Postpartum Signature: Niya Gallagher Phone #: [phone] Date/Time: 08/15/2020614 This is a permanent part of the Medical Record [facility]
--- NOTE | 2020-08-18 20:46 | DIS ---
DATE OF ADMISSION: 08/06/2020 DATE OF DISCHARGE: 08/14/2020 CONSULTS: Hand Surgery, Dr. Mcclellan. DISCHARGE ATTENDING: Dr. Winters. PROCEDURES: On 08/06/2020, repair of right wrist wound and multiple tendon lacerations by Dr. Mcclellan. PRIMARY DIAGNOSES: 1. Status post self-inflicted bilateral wrist lacerations. 2. Concern for possible right arterial wrist injury. 3. Multiple tendon lacerations. 4. Ulnar artery laceration. SECONDARY DIAGNOSES: History of depression. DISCHARGE MEDICATIONS: 1. Acetaminophen 650 mg p.o. q.6 hours for pain. 2. Aspirin 325 mg p.o. daily. 3. Tegretol 300 mg p.o. 3 times a day with meals. No discontinued medications. HISTORY OF PRESENT ILLNESS AND HOSPITAL COURSE: This is a 40-year-old male who presented to the emergency room with bilateral self-inflicted wrist lacerations. It was reported that the patient called his father and was acting unusual. He sent EMS to check on the patient, and he was noted to have bilateral wrist lacerations. The patient was evaluated in the emergency room and compression dressings were applied. The patient was taken to the operating room by Hand Surgery, Dr. Mcclellan, for washout and repair. The patient's pain was controlled during his hospital stay. There were times when the patient was uncooperative and would not speak to staff. The patient was never combative during his hospital stay. He did have a decreased length of stay due to initially when the patient was going to inpatient site he became paranoid that officers were the ones taking him and was refusing. Eventually, the patient agreed after explaining to him that that is the only way for him to be transported to a psych facility. On the day of discharge, the patient's exam was unremarkable. The patient's exam was normal exam including cardiopulmonary and GI. The patient was deemed stable and medically cleared for [facility]. Accepting Dr. Estrella. DISPOSITION: Stable. DISCHARGE INSTRUCTIONS: Location, [facility]. DIET: Regular diet as tolerated. ACTIVITY: As tolerated FOLLOWUP: Follow up with Dr. Mcclellan of Hand Surgery in 7 days. No need to follow up with Trauma Services. This is just summary of the patient's hospital visit, please see the entire chart for details. Job ID: [id number] [facility]
== END 2020-08-14 18:49 | disposition short-term general hospital (02) | DRG 41 ==
LOC: ERS 09:27 → SDC 11:27 → SURG A 11:28
PROVIDERS: ADMIT Surgery; ATTEND Surgery
PROC: 03Q90ZZ Repair Right Ulnar Artery, Open Approach (ICD-10-PCS; principal; 2020-08-06)
PROC: 01Q50ZZ Repair Median Nerve, Open Approach (ICD-10-PCS; 2020-08-06)
PROC: 01Q40ZZ Repair Ulnar Nerve, Open Approach (ICD-10-PCS; 2020-08-06)
PROC: 0KQC0ZZ Repair Right Hand Muscle, Open Approach (ICD-10-PCS; 2020-08-06)
PROC: 0LQ50ZZ Repair Right Lower Arm and Wrist Tendon, Open Approach (ICD-10-PCS; 2020-08-06)
DX: S64.11XA Injury of median nerve at wrist and hand level of right arm, initial encounter (principal); S65.011A Laceration of ulnar artery at wrist and hand level of right arm, initial encounter; S66.821A Laceration of other specified muscles, fascia and tendons at wrist and hand level, right hand, initial encounter; S64.01XA Injury of ulnar nerve at wrist and hand level of right arm, initial encounter; Z20.828 Contact with and (suspected) exposure to other viral communicable diseases; Z23 Encounter for immunization; X78.1XXA Intentional self-harm by knife, initial encounter; F32.9 Major depressive disorder, single episode, unspecified; S61.512A Laceration without foreign body of left wrist, initial encounter; F41.9 Anxiety disorder, unspecified
CPT/HCPCS: 29125; 36415; 80048; 80053; 80202; 80306; 80307; 81003; 81015; 82550; 83735; 84100; 84443; 85025; 85610; 85730; 86850; 86900; 86901; 90471; 90715; 93005; 93010; 96365; 96375; G0390; J0360; J0690; J0702; J1100; J1200; J1630; J1644; J2001; J2060; J2405; J2704; J3010; J3370; J3486; J3490; J7050; S0020; U0002